=== PATIENT | male | born 1965 | race Caucasian/White ===

== ENCOUNTER 2024-03-17 20:30 | Emergency (ER) | payer OTHER ==
[~2024-03-17 20:30] MED LIST: MORPHINE 4 MG/ML SYR ONE; NA CHLORIDE 0.9% 250 ML ONE; ONDANSETRON 4 MG/2 ML VIAL ONE
[2024-03-17] MEDS ORDERED: NA CHLORIDE 0.9% 1,000 ML ONE ×2 (20:31→20:52)
[2024-03-17] MEDS ORDERED: CEFAZOLIN SODIUM 2 GM/VIAL ONE (20:31)
[2024-03-17] MEDS ORDERED: THIAMINE 200 MG/2 ML INJ ONE (20:51)
[2024-03-17] MEDS ORDERED: TRANEXAMIC ACID 1,000 MG/10 ML VIAL IV ONE (20:52)
[2024-03-17] MEDS ORDERED: NA CHLORIDE 0.9% 100 ML ONE (20:52)
[2024-03-17] MEDS ORDERED: TDAP (DIPHTH,PERTUSS(ACELL),TET VAC) 0.5 ML VIAL IMVAC ONE (20:52)
[2024-03-17 20:53] LABS: Absolute Eosinophils 0.4 K/uL (0-0.5); Absolute Lymphocytes (CBC) 3.2 K/uL (0.7-4.9); Absolute Monocytes 1.6 K/uL (0.1-1.3); Absolute Neutrophil 5.2 K/uL (1.8-8.0); Basophils % 0.5 % (0-1.3); Eosinophils % 3.6 % (0-4.4); Hematocrit 39.3 % (39.6-49.0); Hemoglobin 13.3 g/dL (13.6-17.9); MCH 33.4 pg (27.0-35.0); MCHC 33.9 g/dL (32.0-36.0); MCV 98.5 fL (80-100); MPV 7.8 fL (7.6-11.3); Monocytes % 15.1 % (3.3-12.3); Neutrophils % 49.8 % (41.7-73.7); Nucleated Red Blood Cells % 0.1 % (0-0); Platelets 349 thou/uL (152-406); RBC Red Blood Cell Count 3.99 M/uL (4.33-5.43); Red Cell Distribution Width 14.9 % (12.1-15.2)
[2024-03-17] MEDS ORDERED: LORazepam 2 MG/ML VIAL ONE ×2 (20:55→23:05)
[2024-03-17] MEDS ORDERED: ZIPRASIDONE MESYLA 20 MG/VIAL IM ONE (20:58)
[2024-03-17] MEDS ORDERED: WATER FOR INJ,STERILE 10 ML ONE (20:58)
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
[2024-03-17] MEDS ORDERED: LIDOCAINE 1% 20 ML MDV ONE (21:18)
[2024-03-17 21:26] LABS: PT Prothrombin Time 10.3 SECONDS (9.4-12.5); Protime INR 0.92
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
[2024-03-17] MEDS ORDERED: MORPHINE 4 MG/ML SYR ONE (21:50)
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
[2024-03-17] MEDS ORDERED: MORPHINE 2 MG/ML SYR ONE (23:06)
[2024-03-17 23:41] VITALS: TEMP 98.1
[2024-03-17 23:46] VITALS: BP 150/106; O2SAT 98
== END 2024-03-17 23:16 | disposition short-term general hospital (02) ==
LOC: ER 20:30
DX: S71.121A Laceration with foreign body, right thigh, initial encounter (principal); F10.129 Alcohol abuse with intoxication, unspecified; W39.XXXA Discharge of firework, initial encounter; Y93.89 Activity, other specified; Y92.9 Unspecified place or not applicable; Z91.199 Patient's noncompliance with other medical treatment and regimen due to unspecified reason; Y90.8 Blood alcohol level of 240 mg/100 ml or more
CPT/HCPCS: 96365; 96367; 85025; 80048; 36415; 86900; 86850; 85610; 86901; 73706; 72191; 71275; 74175; 72170; 73552; 96375; 96372; 99285; 82077; Q9967; J3411; J2003; J3486; J2270; J2405; J7050; J7030 ×2